=== PATIENT | female | born 1960 | race Caucasian/White ===

== ENCOUNTER 2020-06-19 15:48 | Emergency (ER) | payer BC, SELFPAY ==
[2020-06-19] VITALS (9 sets, daily range): BP systolic 154–162; BP diastolic 82–91; PULSE 67–80; RESP 16–18; TEMP 36.3; O2SAT 99–100
--- NOTE | ~2020-06-19 | XR_ITS ---
EXAMINATION: XR chest 2V 06/19/2020 16:18 INDICATION: Sternal chest pain PROCEDURE: 2 view chest COMPARISON: No prior studies for comparison. FINDINGS: The lungs are clear. The cardiomediastinal silhouette is within normal limits. There are no pleural effusions. There is no pneumothorax suspected. IMPRESSION: 1: NO ACUTE CARDIOPULMONARY DISEASE. Reviewed, dictated and finalized at location B.
--- NOTE | 2020-06-19 15:50 | ECG_ITS ---
Measurements Intervals [place] Rate: 82 P: 59 WI: 143 QRS: -20 QRSD: 90 T: 70 QT: 366 QTc: 428 Interpretive Statements SINUS RHYTHM LEFT ATRIAL ENLARGEMENT BORDERLINE R WAVE PROGRESSION, ANTERIOR LEADS BORDERLINE ECG Electronically Signed On 06-19-2020 16:09:44 CDT by Justice Fortune D.O.
[2020-06-19 16:30] LABS: Basophils Absolute Auto 0.1 K/mm3 (0.0-0.1); Basophils Percent Auto 0.9 % (0.2-1.2); Eosinophils Absolute Auto 0.1 K/mm3 (0-0.3); Eosinophils Percent Auto 2.2 % (0-4.4); Hematocrit 39.8 % (37.0-47.0); Hemoglobin 14.1 g/dL (12.0-15.0); Immature Granulocyte Absolute 0.03 K/mm3 (0.00-0.031); Immature Granulocyte Percent A 0.5 % (0-0.5); Lymphocytes Absolute Auto 1.89 K/mm3 (0.9-3.2); Lymphocytes Percent Auto 32.4 % (18.3-44.2); Mean Corpuscular HGB Conc 35.4 g/dl (32-36); Mean Corpuscular Hemoglobin 34.7 pg (26-34); Mean Platelet Volume 10.5 fl (7.4-10.4); Monocytes Absolute Auto 0.6 K/mm3 (0.1-0.6); Monocytes Percent Auto 9.8 % (2.6-8.5); Neutrophils Absolute Auto 3.2 K/mm3 (1.3-6.7); Neutrophils Percent Auto 54.2 % (45.5-73.1); Platelet Count Result 235 k/mm3 (150-375); Red Blood Count 4.06 M/mm3 (4.2-5.4); Red Cell Distribution Width 11.9 % (11.5-14.5); White Blood Count 5.8 K/mm3 (4.5-10.0)
[2020-06-19 16:40] LABS: Anion Gap 7 mmol/L (8-16); Blood Urea Nitrogen 13 mg/dL (7-17); Calcium 8.9 mg/dL (8.4-10.2); Carbon Dioxide 28 mmol/L (22-30); Chloride 102 mmol/L (98-107); Estimated CRCL calculation 80 ml/min; Estimated Glomerular Filt Rate > 60; Glucose 82 mg/dL (65-105); Potassium 3.9 mmol/L (3.4-5.0); Sodium 137 mmol/L (137-145)
[2020-06-19 16:52] LABS: Troponin I < 0.012 ng/mL (0.000-0.034)
[2020-06-19 18:06] LABS: INR 0.9; Prothrombin Time 12.4 Seconds (11.1-14.7)
[2020-06-19 18:09] LABS: Partial Thromboplastin Time 24.3 SECONDS (22.3-36.8)
--- NOTE | 2020-06-19 19:15 | PC.NURSE ---
Report given to Analilia BRADFORD
--- NOTE | 2020-06-19 19:43 | PC.NURSE ---
This RN notified by page technician that she feels better. 3-hour repeat troponin result pending. awaiting further instructions. will continue to monitor.
[2020-06-19 19:52] LABS: Troponin I < 0.012 ng/mL (0.000-0.034)
--- NOTE | 2020-06-19 20:27 | ED.CHESTPAIN ---
HPI - Chest Pain General Chief Complaint: Chest Pain Stated Complaint: chest pain Time Seen by Provider: 06/19/20 17:55 Source: patient Mode of arrival: ambulatory Limitations: no limitations History of Present Illness HPI narrative: Patient is 60 years old white female presents with retrosternal chest pain at rest lasted for about [address] to the back. Patient denies any shortness of breath, fever, chills, coughing, trouble breathing. Patient denies any history of chest pain. History of familial tremors, hypothyroidism, gallop, autoimmune neuropathy, hypokalemia. Patient on B12 and vitamin D. Her brother had a heart attack at the age 64. Currently patient is asymptomatic. Related Data Allergies Allergy/AdvReac Type Severity Reaction Status Date / Time cephalexin [From Keflex] Allergy Hives Verified 06/19/20 18:07 Penicillins Allergy Hives Verified 06/19/20 18:06 Review of Systems Review of Systems: Narrative: CONSTITUTIONAL: Denies fever, chills, or sweats. EYES: Denies visual changes, redness, or discharge. ENT: Denies rhinorrhea, congestion, sore throat, or otalgia. CARDIOVASCULAR: Denies chest pain, palpitations, or edema. RESPIRATORY: Denies cough or dyspnea. GASTROINTESTINAL: Denies abdominal pain, nausea, vomiting, or diarrhea. GENITOURINARY: Denies dysuria or hematuria. SKIN: Denies rash or itching. MUSCULOSKELETAL: Denies back pain, joint pain, or myalgia. NEUROLOGIC: Denies headache, numbness, or weakness. PSYCHIATRIC: Denies anxiety or depression. PMFSH Social History Social History Gender identity (if verbalized by the patient): Female Exam Narrative: Exam Narrative: General appearance: Well-developed, well-nourished Skin: Normal color Head: Normocephalic, nontraumatic Eyes: Clear conjunctiva ENT: Oropharynx normal, ears normal, nose normal Neck: Supple, nontender Chest and respiratory: Airway patent, no respiratory distress, no accessory muscle use Heart: Regular rate/rhythm Abdomen: Soft, nontender, no organomegaly, quiet bowel sounds Vascular: Normal peripheral pulses, normal capillary refill. Musculoskeletal: Normal range of motion, nontender back Neurologic: Alert and oriented ?3, [employer] is normal as tested, no gross motor deficit Course Course Emergency Course: Stable Vital Signs Vital signs: Vital Signs Temperature 36.3 C L 06/19/20 15:52 Pulse Rate 80 06/19/20 15:52 Respiratory Rate 16 06/19/20 15:52 Blood Pressure 155/82 H 06/19/20 15:52 Pulse Oximetry 99 06/19/20 15:52 Temperature 36.3 C L 06/19/20 15:52 Pulse Rate 68 06/19/20 19:01 Respiratory Rate 17 06/19/20 19:01 Blood Pressure 154/82 H 06/19/20 19:01 Pulse Oximetry 100 06/19/20 19:01 MDM - Chest Pain MDM Narrative Medical decision making narrative: Retrosternal chest pain lasted for 2 hours, at rest. Currently patient is asymptomatic. Patient came from [place] this morning. Pulmonary embolism is a concern. Patient does not have any coronary artery risk factors except positive family history. Labs, EKG, chest x-ray, ordered. Further plan to follow. After physical exam and the blood work,, I believe patient chest pain high likely secondary to stress, the autoimmune peripheral neuropathy. Because patient told me that she had irregular heartbeat in the past with Holter monitor and a cardiac catheterization 1 year ago because of the autonomic dysfunction Differential Diagnosis Differential diagnosis: Likely pneumothorax, atypical chest pain, costochondritis and chest pain Lab Data Result diagrams: 06/19/20 16:07 06/19/20 16:07
--- NOTE | 2020-06-19 20:55 | PC.NURSE ---
Called adalgisa in lab to add on ddimer
[2020-06-19 21:07] LABS: D Dimer 0.32 ug/mL (<0.48)
--- NOTE | 2020-06-19 21:55 | PC.NURSE ---
d/c [place] [id number]
== END 2020-06-19 21:48 | disposition home or self-care (01) ==
PROVIDERS: General Practice; Emergency Provider Emergency Medicine
DX: R07.2 Precordial pain (principal); G62.9 Polyneuropathy, unspecified; R94.31 Abnormal electrocardiogram [ECG] [EKG]
CPT/HCPCS: 36415; 71046; 80048; 84484; 85025; 85380; 85610; 85730; 93005; 99284